=== PATIENT | female | born 1935 | race Caucasian/White ===

== ENCOUNTER 2018-01-04 10:32 | Day surgery (SDC) | payer OTHER ==
[2017-12-22 16:22] VITALS: BMI 29.2
[2018-01-04] MEDS: GENTAMICIN SULFATE 0.3% OPHTHALMIC (EYE DROPS) 5ML BOTTLE ONE ×2 (11:20→11:40)
[2018-01-04] MEDS: CYCLOPENTOLATE HCL 1% OPHTH SOLN 2 ML BOTTLE ONE ×5 (11:20→11:40)
[2018-01-04] MEDS: TROPICAMIDE 1% OPHTH SOLN 15 ML BOTTLE ONE ×5 (11:20→11:40)
[2018-01-04] MEDS: PHENYLEPHRINE 2.5% OPHTH SOLN 15 ML BOTTLE ONE ×5 (11:20→11:40)
[2018-01-04] MEDS: KETOROLAC TROMETHAMINE 0.5% EYE DROP 1 DROP DROPS ONE ×5 (11:20→11:40)
[2018-01-04] MEDS ORDERED: BETAXOLOL HCL 0.25% OPHTHALMIC 10 ML DROPSBTL ONE (13:00)
[2018-01-04] MEDS ORDERED: EPI-SHUGARCAINE (EPINEPHRINE 0.025% & LIDOCAINE-PF 0.75%) 4ML ONE (13:00)
[2018-01-04] MEDS ORDERED: BACITRACIN/POLYMYXIN OPH OINT 3.5 GM TUBE ONE (13:00)
[2018-01-04] MEDS ORDERED: NEO/POLYMYX B SULF/DEXAMETH OPHTHALMIC 5ML BOTTLE ONE (13:01)
[2018-01-04] MEDS ORDERED: TETRACAINE 0.5% OPHTH SOLN 2 ML BOTTLE ONE (13:01)
[2018-01-04] MEDS ORDERED: BUPIVACAINE HCL/PF 0.5% (5MG/ML) 10 ML VIAL ONE (13:01)
[2018-01-04] MEDS ORDERED: LIDOCAINE HCL 2% JELLY 10 ML CARTRIDGE ONE (13:01)
[2018-01-04] MEDS ORDERED: LIDOCAINE HCL/PF 2% SDV 5ML VIAL ONE (13:01)
[2018-01-04] MEDS ORDERED: ACETAMINOPHEN 325 MG TABLET (FP) PO PRN (13:01)
[2018-01-04] MEDS ORDERED: MIDAZOLAM HCL 2 MG/2 ML SINGLE DOSE VIAL ONE (13:59)
[2018-01-04 15:14] VITALS: TEMP 97.9
[2018-01-04 15:41] VITALS: BP 167/56; PULSE 70
--- NOTE | 2018-01-04 17:08 | OP ---
DATE OF OPERATION: 01/04/2018 PROCEDURE: Planned extracapsular cataract extraction via phacoemulsification with insertion of posterior chamber lens implant, right eye. SURGEON: Gino Sheffield MD AEROPLANE PILOT: None ANESTHESIA: Local/standby. NURSE MANAGEMENT LIAISON: Rowdy Mcgrath CRNA ANESTHESIOLOGIST: Jaime Argueta MD COMPLICATIONS: None. PREOPERATIVE DIAGNOSIS: Cataract, right eye. POSTOPERATIVE DIAGNOSIS: Cataract, right eye. FINDINGS AT PROCEDURE: After successful peribulbar anesthesia was given to the right eye, the patient was prepped and draped in usual manner exposing the right eye with Tegaderm strips and placed on after and the microscope brought into position over the eye and speculum inserted into the right eye to expose. The superior fornix-based flap was then fashioned for 12 mm using Moses scissors and 0.12 forceps and hemostasis achieved with wet-field cautery. Limbal groove was fashioned for 3 mm with a crescent blade dissecting anterior to clear cornea and then a 3-mm blade was used to enter the anterior chamber, then under Viscoat, 360-degree anterior capsulorhexis was performed. It should be noted that Shugarcaine was injected into the anterior chamber prior to the start of the injection of bacitracin to the anterior chamber prior to the capsulotomy. After the capsulotomy was performed and the leaflet removed from the eye, phacoemulsification of entire nucleus was then done in approximately 2 minutes' time followed by irrigation and aspiration of all cortical material leaving intact anterior, posterior capsule and a red reflex present. Provisc was injected in the posterior chamber to deepen the posterior capsule and then incision remained at 3 mm. The capsule was intact now, and there was a red reflex present. Attention was focused to the implant, which was inspected carefully and found to be free of defects, debris, and flaws. It was then irrigated, folded, and placed into the Provisc-filled cartridge and cartridge placed into the injector and injected into the eye such as the inferior haptic was placed in the inferior capsular bag, and the superior haptic was placed in the superior capsular bag and rotated in the horizontal position with the Sinskey hook. The Provisc was aspirated out, and we placed Miochol and Miostat, and BSS and the wound was closed with single interrupted 2-0 Ethilon suture and tested for leakage, and none was found. The conjunctival-Tenon flap was reapproximated. At this point, the implant was fixated in the capsular bag centrally located with a round pupil, intact posterior capsule, and a red reflex present. The topical Betoptic S and Maxitrol ophthalmic suspensions were placed as was bacitracin Polytrim ophthalmic ointment and then the speculum and Tegaderm strips were removed from the lids. The lids were closed, and a patch and shield placed on the eye and the patient was then discharged from the operating room to the recovery area in good condition having tolerated the procedure well. GINO SHEFFIELD M.D. [id number]
== END 2018-01-04 15:45 | disposition home or self-care (01) ==
LOC: FASU 10:32
PROVIDERS: ATTEND Ophthalmology
PROC: 08RJ3JZ Replacement of Right Lens with Synthetic Substitute, Percutaneous Approach (ICD-10-PCS; principal; 2018-01-04 14:05)
DX: H26.9 Unspecified cataract (principal)

== ENCOUNTER 2018-07-19 07:34 | Day surgery (SDC) | payer OTHER | END 2018-07-19 12:00 | disposition home or self-care (01) | LOC: FASU 07:34 ==